=== PATIENT | female | born 2000 | race Caucasian/White ===

== ENCOUNTER 2021-01-23 17:06 | Observation (INO) | payer SELFPAY ==
[~2021-01-23] VITALS: Ht 157.5 cm; Wt 80.0 kg
== END 2021-01-24 05:20 | disposition home or self-care (01) ==
LOC: LDOP 17:06 → LDIP 20:44
PROVIDERS: ADMIT Obstetrics & Gynecology; ATTEND Obstetrics & Gynecology
DX: O60.03 Preterm labor without delivery, third trimester (principal); Z3A.38 38 weeks gestation of pregnancy; Z91.040 Latex allergy status
CPT/HCPCS: 59025; G0378